=== PATIENT | female | born 1950 | race Caucasian/White ===

== ENCOUNTER 2018-10-28 11:27 | Emergency (ER) | payer MEDICARE, OTHER ==
[2018-10-28] MEDS ORDERED: predniSONE 20 MG TAB ONE (11:55)
[2018-10-28 12:11] LABS: #Basophils 0.1 thou/uL (0.0-0.2); #Lymphocytes 1.8 thou/uL (1.20-3.40); #Monocytes 0.6 thou/uL (0.11-0.59); #Neutrophils 4.5 thou/uL (1.40-6.50); %Basophils 1.1 % (0.0-1.0); %Eosinophils 0.2 % (0.0-10.0); %Lymphocytes 25.8 % (21.0-51.0); %Neutrophils 64.9 % (42.0-75.0); Hemoglobin 10.9 g/dL (12.0-16.0); Mean Corpuscular HGB CONC 30.9 g/dL (32.0-36.0); Mean Corpuscular Hemoglobin 25.4 pg (27.0-31.0); Mean Corpuscular Volume 82.4 fL (78.0-98.0); Platelet Count 218 thou/uL (130-400); RBC Distribution Width 13.6 % (11.5-14.5); White Blood Cell (WBC) Count 6.9 thou/uL (4.8-10.8)
--- NOTE | 2018-10-28 12:18 | RAD ---
FChest 2 views: 10/28/2018 Comparison: None HISTORY: Shortness of breath Findings: No pneumothorax, pleural fluid, focal consolidation, or alveolar edema. IMPRESSION: No acute findings.
--- NOTE | 2018-10-28 12:24 | RAD ---
FRadiograph neck soft tissues 2 views: HISTORY: 68-year-old female with dyspnea and cervicalgia. FINDINGS: There is no supraglottic, epiglottic, or prevertebral soft tissue swelling. Visualized portions of tr achea do not appear to be stenotic. High-grade degenerative disc disease at C5-6. Multilevel bilatera l facet osteoarthrosis. IMPRESSION: No abnormality of soft tissues identified.
[2018-10-28 12:28] LABS: ALT (SGPT) 16 U/L (8-55); AST (SGOT) 20 U/L (5-34); Albumin 3.9 g/dL (3.4-4.8); Alkaline Phosphatase 54 U/L (40-150); Anion Gap 11 mmol/L (10-20); BUN (Urea Nitrogen) 8 mg/dL (9.8-20.1); Bilirubin, Total 0.5 mg/dL (0.2-1.2); Calc. Creatinine Clearance 0 mL/min (70-130); Calcium 9.9 mg/dL (7.8-10.44); Carbon Dioxide 24 mmol/L (23-31); Chloride 100 mmol/L (98-107); Estimated GFR-MDRD Greater than 90; Globulin 2.2 g/dL (2.4-3.5); Glucose 80 mg/dL (80-115); Potassium 4.6 mmol/L (3.5-5.1); Protein, Total 6.1 g/dL (6.0-8.3); Sodium 130 mmol/L (136-145)
== END 2018-10-28 12:41 | disposition home or self-care (01) ==
LOC: SCSER 11:27
DX: R06.02 Shortness of breath (principal); I10 Essential (primary) hypertension; F41.9 Anxiety disorder, unspecified; F32.9 Major depressive disorder, single episode, unspecified; Z79.899 Other long term (current) drug therapy
CPT/HCPCS: 36415; 70360; 71046; 80053; 83880; 84484; 85025; 85379; 87081; 87430; 93005; 94640; J7620